=== PATIENT | female | born 2000 | race Caucasian/White ===

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

== ENCOUNTER 2023-05-21 09:07 | Emergency (ER) | payer OTHER ==
[~2023-05-21] VITALS: Ht 165.1 cm; Wt 77.0 kg
--- NOTE | 2023-05-21 09:42 | ED Upper Extremity ---
General Chief Complaint: Upper Extremity Stated Complaint: RIGHT WRIST INJURY Nursing Triage Note: PT AMB TO [facility] WITH COMPLAINT OF RIGHT WRIST PAIN. 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 Source: patient Exam Limitations: no limitations History of Present Illness Date Seen by Provider: May 21, 2023 Time Seen by Provider: 09:32 Initial Comments Report of right forearm pain after getting it caught on a patient moving cot at the home. She states that she went to pull on the cot to move it and accidentally hit the head release panel and it came down and hit her on the forearm. She does have some bruising there. Denies other injury. She did take ibuprofen last night and that helped. She has some pain with flexion and extension of the wrist but she retains full range of motion. No lacerations or skin break noted or reported. Onset: yesterday Severity: moderate Pain/Injury Location: right forearm Method of Injury: direct blow Modifying Factors: Worse With Immobilization; Improves With Movement Allergies and Home Medications Allergies Coded Allergies: No Allergy Information Available (Unverified , 10/03/17) Patient Home Medication List Home Medication List Reviewed: Yes Amoxicillin/Potassium Clav (Augmentin 875-125 Tablet) 1 Each Tablet, 1 EACH PO BID Prescribed by: IMTIAZ SINGLETON on 11/09/21 1106 Review of Systems Constitutional: no symptoms reported Respiratory: no symptoms reported Cardiovascular: no symptoms reported Musculoskeletal: muscle pain, muscle stiffness Skin: change in color (Ecchymosis right forearm); No lesions Past Fkydaaj-Bzjmdk-Czbqvh Hx Patient Social History Tobacco Use?: No Past Medical History Surgeries: No Respiratory: No Cardiac: No Psychosocial: Yes Depression Physical Exam Vital Signs Vital Signs - First Documented 05/21/23 09:21 Pulse 99 Resp 20 B/P (MAP) 128/65 (86) Pulse Ox 100 Capillary Refill : Height, Weight, BMI Height: 5'7.00" Weight: 142lbs. 0.0oz. 64.694349st; 28.00 BMI Method: General Appearance: WD/WN, no apparent distress Cardiovascular: regular rate, rhythm, no murmur Respiratory: lungs clear, normal breath sounds Elbow/Forearm: Right, ecchymosis, soft tissue tenderness (Distal mid forearm radial side) Progress/Results/Core Measures Results/Orders My Orders Orders - ROBERTO SKY MD Forearm, Right, 2 Views (05/21/23 09:39) Vital Signs/I&O 05/21/23 09:21 Pulse 99 Resp 20 B/P (MAP) 128/65 (86) Pulse Ox 100 Blood Pressure Mean: 86 Progress Progress Note : Progress Note Seen and evaluated. X-ray right forearm ordered. Monitor patient. Differential is contusion versus fracture. 1010: No obvious acute fracture of right forearm on my interpretation. Radiology report agrees. Discharged home with return precautions. Patient verbalized understanding of instructions and agreement with plan. Diagnostic Imaging Diagonstic Imaging: Xray Plain Films/CT/US/NM/MRI: forearm Comments [facility]. [place], [place] NAME: SABA DAUGHERTY [facility] REC#: [id number] PT STATUS: REG ER : 2000 PHYSICIAN: ROBERTO SKY MD ADMIT DATE: 05/21/23/ER Draft Date of Exam:05/21/23 FOREARM, RIGHT, 2 VIEWS INDICATION: Pain. 2 views were obtained FINDINGS: The alignment is normal. There is no fracture or dislocation. Soft tissues are unremarkable. IMPRESSION: No acute fracture or dislocation. Dictated on workstation # [id number] Dict: 05/21/23 1005 Trans: 05/21/[address] [place] [address] [phone] Interpreted by: SHAHEED KIMBLE MD Electronically signed by: Departure Impression Primary Impression: Contusion of forearm, right Qualified Codes: S50.11XA - Contusion of right forearm, initial encounter Disposition: 01 HOME, SELF-CARE Condition: Improved Departure-Patient Inst. Decision time for Depature: 10:11 Referrals: CHITO BARONE DO (PCP/Family) Primary Care Physician Patient Instructions: Contusion (DC) Add. Discharge Instructions: All discharge instructions reviewed with patient and/or family. Voiced understanding. You may take ibuprofen 600 mg every 8 hours as needed for pain. You may also take Tylenol/acetaminophen 1000 mg every 8 hours as needed for pain. You may use ice packs to area of concern 20 minutes/h as needed to reduce swelling and pain. You may use [id number] wrist splint as needed to reduce pain over the next few days. Follow-up with your doctor in a few days for recheck. Return for worse pain, swelling, weakness, numbness or other concerns as needed. ROBERTO SKY MD May 21, 2023 09:42
--- NOTE | 2023-05-21 10:07 | Diagnostic Imaging Report ---
INDICATION: Pain. 2 views were obtained FINDINGS: The alignment is normal. There is no fracture or dislocation. Soft tissues are unremarkable. IMPRESSION: No acute fracture or dislocation. Dictated by: Dictated on workstation # [id number]
[2023-05-21 10:18] VITALS: BP 128/65
== END 2023-05-21 10:18 | disposition home or self-care (01) ==
LOC: EDUNIT# 09:07 → ER 09:11
DX: S50.11XA Contusion of right forearm, initial encounter (principal); W22.03XA Walked into furniture, initial encounter; Y92.009 Unspecified place in unspecified non-institutional (private) residence as the place of occurrence of the external cause
CPT/HCPCS: 73090